=== PATIENT | male | born 1955 | race Caucasian/White ===

== ENCOUNTER 2022-02-15 09:28 | Outpatient (CLI) | payer OTHER | END 2022-02-15 09:29 | disposition home or self-care (01) | LOC: CSHLAB 09:28 | PROVIDERS: ATTEND Internal Medicine Gastroenterology | DX: Z20.822 Contact with and (suspected) exposure to COVID-19 (principal); K59.00 Constipation, unspecified | CPT/HCPCS: 87811 ==

== ENCOUNTER 2022-02-17 06:11 | Day surgery (SDC) | payer OTHER ==
[2022-02-15 16:34] VITALS: BMI 28.6
[2022-02-17] MEDS ORDERED: Lidocaine 1% MPF 2 ML VIAL ONE (06:57)
[2022-02-17] MEDS ORDERED: Lidocaine 4% PF 5 ML AMP ONE (07:03)
[2022-02-17] MEDS ORDERED: PROPOFOL 40 ML ONE (07:03)
[2022-02-17] MEDS ORDERED: Fentanyl 100 MCG/2 ML VIAL ONE (07:54)
[2022-02-17] MEDS ORDERED: PROPOFOL 20 ML ONE ×2 (08:08→08:28)
== END 2022-02-17 09:28 | disposition home or self-care (01) ==
LOC: CSHSDC 06:11
PROVIDERS: ATTEND Internal Medicine Gastroenterology
PROC: 0DBL8ZZ Excision of Transverse Colon, Via Natural or Artificial Opening Endoscopic (ICD-10-PCS; principal; 2022-02-17)
PROC: 0DBN8ZZ Excision of Sigmoid Colon, Via Natural or Artificial Opening Endoscopic (ICD-10-PCS; principal; 2022-02-17)
DX: D12.3 Benign neoplasm of transverse colon (principal); D12.5 Benign neoplasm of sigmoid colon; K64.9 Unspecified hemorrhoids; K59.00 Constipation, unspecified; E11.9 Type 2 diabetes mellitus without complications; K70.31 Alcoholic cirrhosis of liver with ascites; G47.30 Sleep apnea, unspecified; M19.90 Unspecified osteoarthritis, unspecified site; F17.200 Nicotine dependence, unspecified, uncomplicated; Z20.822 Contact with and (suspected) exposure to COVID-19; Z90.49 Acquired absence of other specified parts of digestive tract; Z96.651 Presence of right artificial knee joint; Z96.643 Presence of artificial hip joint, bilateral; Z98.890 Other specified postprocedural states
CPT/HCPCS: 88305; J2704; J3010